=== PATIENT | male | born 1940 | race Two or more races ===

== ENCOUNTER → 2021-04-04 | Outpatient (CLI) | payer OTHER ==
[2018-12-14 11:14] VITALS: BP 197/88
[~2021-04-04] MED LIST: AMLO-187 PO
--- NOTE | 2021-04-04 15:43 | RAD ---
EXAM: Bilateral carotid duplex with waveform analysis. CLINICAL HISTORY: Reason: LT CAROTID BRUIT / TECHNIQUE: Longitudinal and transverse sonographic images of the bilateral carotid arteries was perfo rmed utilizing grayscale, color and spectral Doppler techniques. COMPARISON: None FINDINGS:Atherosclerotic calcification involving the carotid bifurcations noted bilaterally. No high- grade visual stenosis is identified. Antegrade flow in the bilateral vertebral arteries noted. 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 Ultrasound findings are suggestive of less than 5 0% stenosis of the left internal carotid artery Consensus Panel Alcocer-scale and Doppler US Criteria for Diagnosis of ICA Stenosis Degree of Stenosis (%) ICA PSV (Cm/sec) Plaque Estimate (%)* Normal <125 None <50 <125 <50 50-69 125-230 >50 >70 but < near occlusion >230 >50 Near occlusion High, low, or undetectable Visible Total occlusion Undetectable Visible, no detectable lumen *Plaque estimate (diameter reduction) with alcocer-scale and color Doppler US Degree of Stenosis (%) ICA/CCA PSV Ratio ICA EDV (cm/sec) Normal <2.0 <40 <50 <2.0 <40 50-69 2.0-4.0 40-100 >70 but < near occlusion >4.0 >100 Near occlusion Variable Variable Total occlusion Not applicable Not applicable Electronically signed by: Sandro Ontiveros MD (04/04/2021 3:41 PM) [id number]
== END ==
LOC: US 14:54
PROVIDERS: ATTEND Family Medicine
DX: I65.21 Occlusion and stenosis of right carotid artery (principal); R09.89 Other specified symptoms and signs involving the circulatory and respiratory systems
CPT/HCPCS: 93880